=== PATIENT | female | born 2000 | race Caucasian/White ===

== ENCOUNTER 2019-11-16 23:02 | Emergency (ER) | payer BC, SELFPAY ==
[2019-11-16 23:04] VITALS: BP 142/96; PULSE 85; RESP 19; TEMP 37.4; O2SAT 100
--- NOTE | 2019-11-17 00:24 | ED.GENADULT ---
HPI - General Adult General Chief complaint: Extremity Injury, Upper Stated complaint: Infection Time Seen by Provider: 11/16/19 23:41 Source: patient Mode of arrival: ambulatory Limitations: no limitations History of Present Illness HPI narrative: This patient is a 19 yo female who presents for evaluation of right axilla abscess. Patient noted an area in right arm pit with redness and swelling yesterday. She reports history of staph infection so she was prescribed doxycycline today and she has taken 2 doses. She noticed the area of redness and swelling was increasing so she came to ER. She has history of staph infections requiring I and D. She denies nausea, fever or chills. Onset (ago): day(s) (1) Related Data Home Medications Medication Instructions Recorded Confirmed doxycycline hyclate 20 mg PO Q12H 11/16/19 Allergies Allergy/AdvReac Type Severity Reaction Status Date / Time amoxicillin Allergy Hives Verified 11/16/19 23:17 Penicillins Allergy Hives Verified 11/16/19 23:17 Sulfa (Sulfonamide Allergy Unknown Verified 11/16/19 23:17 Antibiotics) Review of Systems Constitutional: Constitutional: Denies chills, Denies fever(s) and Denies weakness Integumentary/Breasts: Skin/Breast: Reports erythema PMFSH Past Medical History Medical History (Updated 11/17/19 @ 00:54 by Melody Pompa MD) History of staph infection Social History Social History (Updated 11/17/19 @ 00:25 by Melody Pompa MD) Smoking status: Never smoker Gender identity (if verbalized by the patient): Female Exam Const: General: no acute distress and alert Orientation/consciousness: patient oriented x3 HENMT: Head: normocephalic Face and sinus: face symmetric Eyes: EOM: EOMs intact bilaterally Resp: Effort & Inspection: normal respiratory effort Skin: Other: right axilla is 3 cm area of erythema, swelling tenderness , no drainage Neuro: General: patient oriented x3 and moves all extremities Extrem: General: normal to inspection Other: bilateral strong radial pulses Psych: Mental Status: mental status grossly normal Affect: normal affect Course Reevaluation(s) Reevaluation #1: I Discussed with patient and her mother return precautions. She will continue taking doxycycline. Date: 11/17/19 Time: 00:50 Vital Signs Vital signs: Vital Signs Temperature 99.4 F 11/16/19 23:04 Pulse Rate 85 11/16/19 23:04 Respiratory Rate 19 11/16/19 23:04 Blood Pressure 142/96 H 11/16/19 23:04 Pulse Oximetry 100 11/16/19 23:04 Temperature 98.7 F 11/17/19 01:21 Pulse Rate 63 11/17/19 01:21 Respiratory Rate 14 11/17/19 01:21 Blood Pressure 129/67 11/17/19 01:21 Pulse Oximetry 100 11/17/19 01:21 Procedures Abscess I/D right axilla: Date of Incision: 11/17/19 Time of Incision: 00:50 Side (if applicable): right Local Anesthetic: lidocaine 1% and with epi Amount of anesthesia used (mL): 1 Technique: incised with #11 blade and probed loculations Amount of fluid expressed (mL): 1 Irrigation: No Packing used?: iodoform I&D Results: Pus and Blood Medical Decision Making Vital Signs Vital Signs: Vital Signs Temperature 99.4 F 11/16/19 23:04 Pulse Rate 85 11/16/19 23:04 Respiratory Rate 19 11/16/19 23:04 Blood Pressure 142/96 H 11/16/19 23:04 Pulse Oximetry 100 11/16/19 23:04 Temperature 98.7 F 11/17/19 01:21 Pulse Rate 63 11/17/19 01:21 Respiratory Rate 14 11/17/19 01:21 Blood Pressure 129/67 11/17/19 01:21 Pulse Oximetry 100 11/17/19 01:21 Discharge Plan Discharge Clinical Impression: Abscess of axilla, right Patient Disposition: Home, Self-Care Condition: Stable Instructions: Antibiotic Form, Abscess (ED), Abscess Follow-up (ED), Abscess Incision and Drainage (DC) Additional Instructions: Today you were evaluated for an abscess that was drained.
[2019-11-17 01:21] VITALS: BP 129/67; PULSE 63; RESP 14; TEMP 37.1; O2SAT 100
== END 2019-11-17 01:24 | disposition home or self-care (01) ==
PROVIDERS: Emergency Provider General Practice; PCP Pediatrics
DX: L02.411 Cutaneous abscess of right axilla (principal)
CPT/HCPCS: 10061; 99282

== ENCOUNTER 2020-11-09 11:00 | Outpatient (CLI) | payer BC, SELFPAY | END 2020-11-09 11:01 | disposition home or self-care (01) | LOC: ANHCOVIDVC 11:00 | PROVIDERS: PCP Pediatrics | DX: Z23 Encounter for immunization (principal) | CPT/HCPCS: 0001A; 91300 ==

== ENCOUNTER 2020-11-30 10:58 | Outpatient (CLI) | payer BC, SELFPAY | END 2020-11-30 10:59 | disposition home or self-care (01) | LOC: ANHCOVIDVC 10:59 | PROVIDERS: PCP Pediatrics | DX: Z23 Encounter for immunization (principal) | CPT/HCPCS: 0002A; 91300 ==

== ENCOUNTER 2022-06-03 11:36 | Emergency (ER) | payer BC, SELFPAY ==
[2022-06-03 11:56] VITALS: BP 126/81; PULSE 71; RESP 16; TEMP 36.8; O2SAT 98
--- NOTE | 2022-06-03 12:00 | ED.EYEPROB ---
HPI - Eye Problem General Chief complaint: Eye Problems Stated complaint: EYELID REDNESS/SWELLING Time Seen by Provider: 06/03/22 12:01 Source: patient, RN notes reviewed and old records reviewed Mode of arrival: ambulatory Limitations: no limitations History of Present Illness HPI Narrative: 22-year-old female presents to the [facility] with left lower eyelid swelling, history of styes. States it started with discomfort yesterday. Noticed the swelling this morning. Had been applying warm compresses and using an [id number] product. Related Data Home Medications Medication Instructions Recorded Confirmed norethindrone 1 mg-ethinyl 1 tablet DIRECTED 06/03/22 06/03/22 estradiol 10 mcg (24)-iron 10 mcg(2) tablet (Lo Loestrin Fe) Allergies Allergy/AdvReac Type Severity Reaction Status Date / Time amoxicillin Allergy Hives Verified 04/25/20 09:13 Penicillins Allergy Hives Verified 04/25/20 09:13 Sulfa (Sulfonamide Allergy Unknown Verified 04/25/20 09:13 Antibiotics) oxycodone AdvReac Unknown SEIZURE Verified 04/25/20 09:13 Review of Systems Review of Systems: All systems reviewed & are unremarkable except as noted in HPI and below Constitutional: Constitutional: Reports no additional constitutional complaints, Denies chills and Denies fever(s) Eyes: Eyes: Reports as per HPI, Denies change in vision and Denies photophobia ENT: Reports system reviewed and no additional complaints, except as documented Cardiovascular: Cardiovascular: Reports no additional cardiovascular complaints Respiratory: Respiratory: Reports no additional respiratory complaints Gastrointestinal: Gastrointestinal: Reports no additional gastrointestinal complaints Musculoskeletal: Musculoskeletal: Reports no additional musculoskeletal complaints Integumentary/Breasts: Skin/Breast: Reports system reviewed and no additional complaints, except as docu Neurologic: Reports system reviewed and no additional complaints, except as documented Psychiatric: Psychiatric: Reports no additional psychiatric complaints Allergic/Immunologic: Allergic/Immunologic: Reports no additional allergic/immunologic complaints PMFSH Past Medical History Medical History History of staph infection Social History Social History Smoking status: Never smoker Gender identity (if verbalized by the patient): Female Comments At the time of my signature, I reviewed and agree with the nursing past medical, surgical, social, and family history. There is no relevant family history pertinent to the patient complaint. Exam Const: General: healthy appearing, comfortable, no acute distress, well developed, alert and well nourished Nutritional Appearance: well nourished Orientation/consciousness: patient oriented x3 Limitations: no limitations HENMT: Head: normal to inspection Ears: external ears normal, TM's normal bilaterally and EAC's normal Face/Nose/Sinus: Normal external nose present and Normal nares present Face and sinus: normal facial exam and sinuses nontender Mouth: Yes Normal oral and palatal mucosa present, Yes lip normal and Yes moist mucous membranes Throat: posterior oropharynx normal and uvula midline Eyes: General: appearance normal, both eyes and all related structures Eyelids: eyelid abnormality left lower eyelid inflamed cyst external lid, swelling (Medial aspect left lower lid) and tenderness; without erythema, with no foreign bodies, without lacerations and no crusting or scaling of lid margins Conjunctivae: conjunctivae normal Pupils: Equal, round and reactive pupils present Neck: Neck: normal visual inspection, full ROM, no lymphadenopathy and no meningeal signs Chest: Chest palpation & inspection: normal inspection of the chest Resp: Effort & Inspection: normal respiratory effort and no use of accessory muscles [place]
[2022-06-03 12:01] VITALS: BP 126/81; PULSE 71; RESP 16; TEMP 36.8; O2SAT 98
== END 2022-06-03 12:17 | disposition home or self-care (01) ==
PROVIDERS: Emergency Provider Nurse Practitioner
DX: H00.015 Hordeolum externum left lower eyelid (principal)
CPT/HCPCS: 99213; G0463